=== PATIENT | male | born 1990 | race Caucasian/White ===

== ENCOUNTER 2016-08-26 12:03 | Emergency (ER) | payer OTHER ==
[~2016-08-26] VITALS: Ht 180.3 cm; Wt 73.8 kg
[~2016-08-26 12:03] MED LIST: BENTYL10 MG PO; CELEXA10 MG PO; LIALDA1.2 GM PO; TYLENOL WITH C1 EACH PO
[2016-08-26] MEDS ORDERED: ROXICODONE5 MG PO (13:57)
[2016-08-26 14:07] VITALS: BP 141/98
== END 2016-08-26 14:08 | disposition home or self-care (01) ==
LOC: EME 12:03
DX: M54.9 Dorsalgia, unspecified (principal); M41.9 Scoliosis, unspecified; K51.90 Ulcerative colitis, unspecified, without complications; M85.80 Other specified disorders of bone density and structure, unspecified site; F17.200 Nicotine dependence, unspecified, uncomplicated
CPT/HCPCS: 72070; 99281; 99284

== ENCOUNTER 2016-10-10 14:19 | Emergency (ER) | payer OTHER ==
[~2016-10-10] VITALS: Ht 180.3 cm; Wt 75.2 kg
[~2016-10-10 14:19] MED LIST changes: +ROXICODONE5 MG PO
[2016-10-10 14:38] VITALS: BP 128/79
== END 2016-10-10 16:35 | disposition left against medical advice (07) ==
LOC: EME 14:19
DX: M54.89 Other dorsalgia (principal); Z53.21 Procedure and treatment not carried out due to patient leaving prior to being seen by health care provider

== ENCOUNTER 2016-11-09 05:24 | Emergency (ER) | payer OTHER ==
[~2016-11-09] VITALS: Ht 180.3 cm; Wt 75.4 kg
[2016-11-09 05:31] VITALS: BP 157/99
[2016-11-09] MEDS ORDERED: FLEXERIL5 MG PO (07:04)
[2016-11-09] MEDS ORDERED: LIDOCARE1 EACH TP (07:04)
[2016-11-09] MEDS ORDERED: PERCOCET 5/31 TABLET PO (07:04)
== END 2016-11-09 07:27 | disposition home or self-care (01) ==
LOC: EME 05:24
DX: M54.6 Pain in thoracic spine (principal); G89.29 Other chronic pain
CPT/HCPCS: 99281; 99283

== ENCOUNTER 2017-04-11 17:09 | Emergency (ER) | payer OTHER ==
[~2017-04-11] VITALS: Ht 180.3 cm; Wt 69.2 kg
[~2017-04-11 17:09] MED LIST changes: +FLEXERIL5 MG PO; +LIDOCARE1 EACH TP; +PERCOCET 5/31 TABLET PO
[2017-04-11 17:37] VITALS: BP 127/77
[2017-04-11 18:06] LABS: HEMATOCRIT 45.7 % (38.0-50.0); MCH 29.5 PG (29.0-34.0); MCHC 34.1 G/DL (30.0-36.0); MCV 86.6 FL (86-99); PLATELET COUNT 325 K/uL (156-360); RBC DIS.WIDTH-CV 12.2 % (11.8-14.6); RBC DIS.WIDTH-SD 38.5 % (39-53); RED BLOOD COUNT 5.28 M/uL (4.00-5.50); WHITE BLOOD COUNT 8.8 K/uL (4.1-10.2)
[2017-04-11 18:21] LABS: CHLORIDE 104 mEq/L (99-109); POTASSIUM 4.7 mEq/L (3.7-5.4); SODIUM 139 mEq/L (136-147)
[2017-04-11 18:23] LABS: GLUCOSE 103 mg/dL (70-99)
[2017-04-11 18:24] LABS: ANION GAP 10 MEQ/L (2-14)
[2017-04-11 18:25] LABS: TOTAL BILIRUBIN 0.7 mg/dL (0.0-1.0)
[2017-04-11 18:27] LABS: ALKALINE PHOSPHATASE 63 IU/L (3-129); GFR ESTIMATE (CALCULATED) > 59 mL/min/ (58.99-99999)
[2017-04-11 18:28] LABS: UREA NITROGEN (BUN) 7 mg/dL (9-23)
[2017-04-11 19:06] LABS: ADD MIUA? NO; BILIRUBIN NEGATIVE; BLOOD NEGATIVE; COLOR COLORLESS ((YELLOW)); GLUCOSE (STRIP) NEGATIVE; KETONES NEGATIVE; LEUKOCYTES NEGATIVE; NITRITE NEGATIVE; PROTEIN (STRIP) NEGATIVE; SPECIFIC GRAVITY 1.003 (1.000-1.030); UCUL ADDED? NO; UROBILINOGEN 0.2 MG/DL (0.2-1.0)
== END 2017-04-11 19:53 | disposition left against medical advice (07) ==
LOC: EME 17:09
DX: R10.9 Unspecified abdominal pain (principal); R11.0 Nausea; R19.7 Diarrhea, unspecified; Z53.21 Procedure and treatment not carried out due to patient leaving prior to being seen by health care provider
CPT/HCPCS: 80053; 81003; 85027